=== PATIENT | male | born 1970 | race Two or more races ===

== ENCOUNTER 2024-08-22 20:13 | Emergency (ER) | payer OTHER ==
[~2024-08-22] VITALS: Ht 165.1 cm; Wt 108.9 kg
[2024-08-22] MEDS ORDERED: LOTREL 5-20 MG1 CAP (20:52)
[2024-08-22] MEDS ORDERED: GLIMEPIRIDE4 M1 (20:53)
[2024-08-22] MEDS ORDERED: ATORVASTATIN CA20 MG (20:53)
[2024-08-22] MEDS ORDERED: GLUMETZA1000 MG (20:53)
[2024-08-22] MEDS ORDERED: FARXIGA5 MG (20:54)
[2024-08-22] MEDS ORDERED: TRAMADOL HCL 50 MG TABLET PO ONE (21:15)
[2024-08-22 23:09] LABS: URINE APPEARANCE Clear; URINE BILIRRUBIN Negative (NEGATIVE); URINE BLOOD Negative; URINE COLOR Yellow; URINE KETONE Negative (NEGATIVE); URINE LEUKOCYTE Negative; URINE NITRATE Negative; URINE PROTEIN Negative (NEGATIVE); URINE UROBILINOGEN 0.2 E.U./dl
[2024-08-22 23:12] LABS: URINE WBC 4.1 uL (0.0-23.2)
[2024-08-22 23:14] LABS: URINE BACTERIA 3.7 uL (0.0-1933); URINE EPITHELIAL CELLS 0.9 uL (0.0-38.8); URINE GLUCOSE >=1000 MG/DL (NEGATIVE); URINE RBC 0.6 uL (0.0-20.8)
[2024-08-22 23:21] LABS: HEMATOCRIT 46.1 % (39.0-48.0); HEMOGLOBIN 15.6 g/dL (13-16.00); MEAN CELL VOLUME 89.8 fL (80.0-100.00); MEAN CORPUSCULAR HEMOGLOBIN 30.5 pg (27.00-32.0); MEAN CORPUSCULAR HGB CONC 33.9 g/dl (32.0-36.0); PLATELET COUNT 276 K/uL (150-450); RED BLOOD COUNT 5.13 M/uL (4.00-6.00); RED CELL DISTRIBUTION WIDTH 13.4 % (11.5-14.5)
[2024-08-22 23:37] LABS: ALBUMIN 4.1 gm/dL (3.4-5.0); ALKALINE PHOSPHATASE 57 U/L (50-136); ALT/SGPT 40 U/L (12-78); AST/SGOT 22 U/L (15-37); BILIRUBIN TOTAL 0.77 mg/dL (0.3-1.2); BLOOD UREA NITROGEN 21 mg/dL (7-18); BUN CREA RATIO 17 (7.0-25.0); CALCIUM 9.1 mg/dL (8.5-10.1); CARBON DIOXIDE 28 mEq/L (21-32); CREATININE SERUM 1.24 mg/dL (0.70-1.30); GFR 60.98; GLOBULINA 3.9 G/DL (2.4-3.5); GLUCOSE FASTING 164 mg/dL (65-100)
[2024-08-22 23:41] LABS: CHLORIDE 105 mmol/L (98-107); POTASSIUM 4.16 mEq/L (3.5-5.1); SODIUM 140 mmol/L (136-145)
[2024-08-22] MEDS ORDERED: KETO10TA2 PO (23:52)
== END 2024-08-23 00:46 | disposition home or self-care (01) ==
LOC: ER 20:14
PROVIDERS: General Practice
DX: S00.93XA Contusion of unspecified part of head, initial encounter (principal); V49.9XXA Car occupant (driver) (passenger) injured in unspecified traffic accident, initial encounter; Y93.89 Activity, other specified; Y92.413 State road as the place of occurrence of the external cause; Y99.9 Unspecified external cause status; E11.9 Type 2 diabetes mellitus without complications; Z79.84 Long term (current) use of oral hypoglycemic drugs; I10 Essential (primary) hypertension